=== PATIENT | female | born 1950 | race Caucasian/White ===

== ENCOUNTER 2016-04-20 03:37 | Observation (INO) | payer OTHER ==
[~2016-04-20] VITALS: Ht 154.9 cm; Wt 67.5 kg
[~2016-04-20 03:37] MED LIST: ASPI81TA28 PO; BISO10TA4 PO; CLOP1TAB15 PO; CLTP PO; MAGN250T22 PO; NITR0.4S UT; [UNRECOGNIZED DRUG - OTHER] IM
--- NOTE | 2016-04-20 04:07 | EMERGENCY ROOM VISIT NOTE ---
History Report prepared by Brea: Rylee Haddad Under the Supervision of: Dr. Arnold Murillo M.D. First contact with patient: 03:45 Chief Complaint: CHEST PAIN Stated Complaint: CHEST DISCOMFORT History of Present Illness The patient is a 66 year old female who presents to the Emergency Room with complaints of intermittent left sided chest pain starting a few days ago. She describes it to be a twinge in her chest. The pain occurs every few minutes and lasts for about 2 seconds at a time. She states the frequency of the pain has increased. The pain worsens at night when she is lying down. She has improvement in her symptoms when she is preoccupied. She does not have any shortness of breath or worsening pain with exertion. She has a history of 5 cardiac stent placements. She denies any personal or family history of blood clots. She has a family history of heart disease. She takes Aspirin, Plavix, and a beta robyn every day. She did not take any Nitro today. The patient denies any recent travels, fevers, nausea, vomiting, lower extremity swelling, or any other complaints. Source of History: patient Onset: a few days ago Position: chest (left) Quality: other (twinge) Timing: intermittent Associated Symptoms: No SOB, No fevers, No nausea, No vomiting Review of Systems See HPI for pertinent positives & negatives. A total of 10 systems reviewed and were otherwise negative. Past Medical & Surgical Medical Problems: (1) Heart disease Surgical Problems: (1) History of coronary artery stent placement Family History Diabetes mellitus FHx: cancer FHx: gallbladder disease FHx: heart disease Hypertension Kidney disease Social History Smoking Status: Never Smoker Marital Status: Housing Status: lives with family Current/Historical Medications Scheduled Aspirin (Aspirin Ec), 81 MG PO QAM Bisoprolol Fumarate (Bisoprolol Fumarate), 5 PO QAM Calcium Carbonate-Cholecalcife (Caltrate 600+D), 1 TAB PO BID Clopidogrel (Plavix), 75 MG PO QAM Ezetimibe (Zetia), 10 MG PO DAILY Nitroglycerin (Nitrostat), 0.4 MG UT PRN [Alicorumab], 75 MG IM EVERY 2 WEEKS Allergies Coded Allergies: Metoprolol (Verified Allergy, Mild, RASH, 04/20/16) Omeprazole (Verified Allergy, Mild, PRURITIS, 04/20/16) Tramadol (Verified Allergy, Mild, RASH, 04/20/16) Beta Adrenergic Blockers (Unverified Allergy, Unknown, RASH, 04/20/16) Codeine (Verified Allergy, Unknown, NAUSEA, 04/20/16) Iron (Verified Allergy, Unknown, DIARRHEA, 04/20/16) Sulfa Drugs (Verified Allergy, Unknown, "GET HOT AND RED", 04/20/16) Fentanyl (Verified Adverse Reaction, Intermediate, NAUSEA/ EXTREME HOT FLASHES, 04/20/16) Physical Exam Vital Signs Date Time Temp Pulse Resp B/P Pulse Ox O2 Delivery O2 Flow Rate FiO2 04/20/16 06:30 36.4 60 17 146/81 97 Room Air 04/20/16 06:16 61 20 118/65 100 04/20/16 06:10 61 20 118/65 100 Room Air 04/20/16 05:00 63 18 124/83 94 Room Air 04/20/16 04:16 94 Room Air 04/20/16 03:57 66 04/20/16 03:49 99 Room Air 04/20/16 03:41 36.5 69 16 146/80 97 Room Air Physical Exam GENERAL: Patient is mildly anxious appearing and in no acute distress. HEENT: No acute trauma, normocephalic atraumatic, mucous membranes moist, no nasal congestion, no scleral icterus. NECK: No stridor, no adenopathy, no meningismus, trachea is midline. LUNGS: No dyspnea. Clear to auscultation and equal bilaterally. No wheeze, no rhonchi. HEART: Regular rate and rhythm. No murmurs, rubs, gallops appreciated. ABDOMEN: Soft, nontender, bowel sounds positive, no masses appreciated, no peritonitis. BACK: No midline tenderness, no CVA tenderness EXTREMITIES: Normal motion all extremities, no cyanosis, no edema. NEUROLOGIC: Alert and oriented, no acute motor or sensory deficits, no focal weakness, cranial nerves grossly intact. SKIN: No rash, no jaundice, no diaphoresis. Medical Decision & Procedures ER Provider Diagnostic Interpretation: X ray results are stated below per my interpretation: Chest: 1 view: No infiltrate, no effusion, normal cardiac border. Laboratory Results 04/20/16 04:10 Red Blood Count 4.45, Mean Corpuscular Volume 89.4, Mean Corpuscular Hemoglobin 31.5, Mean Corpuscular Hemoglobin Concent 35.2, Mean Platelet Volume 9.7, Neutrophils (%) (Auto) 52.0, Lymphocytes (%) (Auto) 38.1, Monocytes (%) (Auto) 7.7, Eosinophils (%) (Auto) 1.7, Basophils (%) (Auto) 0.3, Neutrophils # (Auto) 3.31, Lymphocytes # (Auto) 2.42, Monocytes # (Auto) 0.49, Eosinophils # (Auto) 0.11, Basophils # (Auto) 0.02 04/20/16 04:10 Test 04/20/16 04:10 White Blood Count 6.36 K/uL (4.8-10.8) Red Blood Count 4.45 M/uL (4.2-5.4) Hemoglobin 14.0 g/dL (12.0-16.0) Hematocrit 39.8 % (37-47) Mean Corpuscular Volume 89.4 fL (80-100) Mean Corpuscular Hemoglobin 31.5 pg (25-34) Mean Corpuscular Hemoglobin Concent 35.2 g/dl (32-36) Platelet Count 223 K/uL (130-400) Mean Platelet Volume 9.7 fL (7.4-10.4) Neutrophils (%) (Auto) 52.0 % Lymphocytes (%) (Auto) 38.1 % Monocytes (%) (Auto) 7.7 % Eosinophils (%) (Auto) 1.7 % Basophils (%) (Auto) 0.3 % Neutrophils # (Auto) 3.31 K/uL (1.4-6.5) Lymphocytes # (Auto) 2.42 K/uL (1.2-3.4) Monocytes # (Auto) 0.49 K/uL (0.11-0.59) Eosinophils # (Auto) 0.11 K/uL (0-0.5) Basophils # (Auto) 0.02 K/uL (0-0.2) RDW Standard Deviation 38.4 fL (36.4-46.3) RDW Coefficient of Variation 11.8 % (11.5-14.5) Immature Granulocyte % (Auto) 0.2 % Immature Granulocyte # (Auto) 0.01 K/uL (0.00-0.02) D-Dimer 300 ug/L FEU (0-500) Anion Gap 12.0 mmol/L (3-11) Est Creatinine Clear Calc Drug Dose 53.5 ml/min Estimated GFR () 74.7 Estimated GFR (Non- 64.5 BUN/Creatinine Ratio 18.6 (10-20) Calcium Level 9.5 mg/dl (8.5-10.1) Total Creatine Kinase 78 U/L (26-192) Creatine Kinase MB 1.0 ng/ml (0.5-3.6) Creatine Kinase MB Ratio 1.3 (0-3.0) Troponin I < 0.015 ng/ml (0-0.045) Laboratory results as reviewed by me. Medications Administered Medications (Trade) Dose Ordered Sig/Gunjan Route Start Time Stop Time Status Last Admin Dose Admin Aspirin (Aspirin Chew) 324 mg NOW STAT PO 04/20/16 04:43 04/20/16 04:44 DC 04/20/16 04:56 324 MG ECG Indication: chest pain Rate (beats per minute): 64 Rhythm: normal sinus Findings: T-wave inversion (Anterior), no acute ischemic change, no ectopy Comparison ECG Date: January 05, 2013 Change: Anterior T wave inversion is similar to January 05, 2013. ED Course 0345: The patient was evaluated in room B08. A complete history and physical exam was performed. 0443: Aspirin 324 mg PO 0445: I reevaluated the patient whose symptoms have resolved. 0515: Upon reevaluation, the patient is resting comfortably. Discussed results and treatment plan with the patient. She verbalized understanding and agreement with the treatment plan. I spoke with Dr. Badillo, from [facility] Hospitalist [facility]. The patient will be evaluated for further management. Medical Decision Differential: Cardiac Ischemia (STEMI, NSTEMI, Unstable Angina, etc), Aortic Dissection, Arrhythmia, Pulmonary Embolism, Pneumonia, Pneumothorax, MSK, Infectious, Pericarditis/Myocarditis, Esophageal Rupture, Gastrointestinal, amongst other pathologies entertained. 66 yr old female with extensive CAD history and multiple previous stents. Previous angina non-classical and with increasing chest tingling without exertion seems concerning that she may be having another ACS episode. No Chest discomfort while in department. Given asa empirically. Initial EKG looks similar to previous and negative initial trop. No evidence PE, dissection, infectious etiology. Stable and comfortable throughout ED stay. Given history will bring in to medical service for further work-up and evaluation. Consults Time Called: 05 Consulting Physician: Dr. Badillo, from [facility] Returned Call: [address] [facility] Impression Primary Impression: Left sided chest pain Scribe Attestation The scribe's documentation has been prepared under my direction and personally reviewed by me in its entirety. I confirm that the note above accurately reflects all work, treatment, procedures, and medical decision making performed by me. Departure Information Dispostion Being Evaluated By Hospitalist Referrals RV. Espinoza MD (PCP) Patient Instructions My [facility]
[2016-04-20 04:26] LABS: BASO % 0.3 %; BASO ABS # 0.02 K/uL (0-0.2); COMPLETE YES; EOS % 1.7 %; HEMATOCRIT 39.8 % (37-47); IG% 0.2 %; LYMPH % 38.1 %; LYMPH ABS # 2.42 K/uL (1.2-3.4); MEAN CELL VOLUME 89.4 fL (80-100); MEAN CORPUSCULAR HEMOGLOBIN 31.5 pg (25-34); MEAN CORPUSCULAR HGB CONC 35.2 g/dl (32-36); MEAN PLATELET VOLUME 9.7 fL (7.4-10.4); MONO % 7.7 %; PLATELET COUNT 223 K/uL (130-400); RED BLOOD COUNT 4.45 M/uL (4.2-5.4); WHITE BLOOD COUNT 6.36 K/uL (4.8-10.8)
[2016-04-20] MEDS ORDERED: CALC-354 PO (04:39)
[2016-04-20] MEDS ORDERED: EZET10TA63 PO (04:40)
[2016-04-20] MEDS ORDERED: ASPIRIN 324 MG CHEW PO STA (04:43)
[2016-04-20 04:48] LABS: BLOOD UREA NITROGEN 17 mg/dl (7-18); BUN/CREATININE RATIO 18.6 (10-20); CALCIUM 9.5 mg/dl (8.5-10.1); CARBON DIOXIDE 26 mmol/L (21-32); CHLORIDE 105 mmol/L (98-107); CREATININE 0.93 mg/dl (0.60-1.20); GLUCOSE 93 mg/dl (70-99); POTASSIUM 3.7 mmol/L (3.5-5.1); SODIUM 143 mmol/L (136-145)
[2016-04-20 04:53] LABS: CKMB/CK RATIO 1.3 (0-3.0)
--- NOTE | 2016-04-20 05:43 | History and Physical ---
History & Physical Date & Time of Service: Apr 20, 2016 at 05:43 Chief Complaint: Chest Discomfort Primary Care Physician: RV. Espinoza MD History of Present Illness Source: patient, clinic records This is a 66 yo f who follows with Dr Brooks from [facility] [facility] for cardiac stent x 5. She had 3 placed in 2008 and 2 placed in 2012. She states that she has been suffering from short bouts of chest "twinges" for the past 1-2 days in the left chest. These episodes last 1-2 sec and feel like a pinch. Usually self resolving with no aggravating factors. She said she was not concerned however at 0230 this morning she was having a sustained episode and because it was not resolving decided to come to the ED for evaluation. Currently the pain is 0/10 and she has not had an episode for an hour. She denies having any diaphoresis, SOB, nausea, cough, presyncope. Past Medical/Surgical History Medical Problems: (1) Heart disease Status: Chronic Family History Diabetes mellitus FHx: cancer FHx: gallbladder disease FHx: heart disease Hypertension Kidney disease Social History Smoking Status: Never Smoker Smokeless Tobacco Use: No Alcohol Use: none Drug Use: none Marital Status: Housing status: lives with family Occupational Status: retired Immunizations History of Influenza Vaccine: Yes Influenza Vaccine Date: Dec 22, 2012 History of Tetanus Vaccine?: Yes Tetanus Immunization Date: Jun 12, 2008 History of Pneumococcal: Yes Pneumococcal Date: Oct 11, 2008 History of Hepatitis B Vaccine: Yes Hepatitis Immunization Date: Jan 10, 2011 Multi-Drug Resistant Organisms History of MDRO: No Allergies Coded Allergies: Metoprolol (Verified Allergy, Mild, RASH, 04/20/16) Omeprazole (Verified Allergy, Mild, PRURITIS, 04/20/16) Tramadol (Verified Allergy, Mild, RASH, 04/20/16) Beta Adrenergic Blockers (Unverified Allergy, Unknown, RASH, 04/20/16) Codeine (Verified Allergy, Unknown, NAUSEA, 04/20/16) Iron (Verified Allergy, Unknown, DIARRHEA, 04/20/16) Sulfa Drugs (Verified Allergy, Unknown, "GET HOT AND RED", 04/20/16) Fentanyl (Verified Adverse Reaction, Intermediate, NAUSEA/ EXTREME HOT FLASHES, 04/20/16) Home Medications Scheduled Aspirin (Aspirin Ec), 81 MG PO QAM Bisoprolol Fumarate (Bisoprolol Fumarate), 5 PO QAM Calcium Carbonate-Cholecalcife (Caltrate 600+D), 1 TAB PO BID Clopidogrel (Plavix), 75 MG PO QAM Ezetimibe (Zetia), 10 MG PO DAILY Nitroglycerin (Nitrostat), 0.4 MG UT PRN [Alicorumab], 75 MG IM EVERY 2 WEEKS Review of Systems Constitutional: No fever Eyes: No worsening of vision ENT: No hearing loss Respiratory: No cough, No dyspnea at rest, No dyspnea on exertion, No shortness of breath, No sputum, No wheezing Cardiovascular: + chest pain Abdomen: No constipation, No diarrhea, No nausea, No pain, No vomiting Musculoskeletal: No joint pain, No muscle pain Neurologic: No balance problems, No memory loss, No numbness/tingling Psychiatric: No depression symptoms Endocrine: No fatigue Integumentary: No rash Physical Exam Vital Signs Date Time Temp Pulse Resp B/P Pulse Ox O2 Delivery O2 Flow Rate FiO2 04/20/16 05:00 63 18 124/83 94 Room Air 04/20/16 04:16 94 Room Air 04/20/16 03:57 66 04/20/16 03:49 99 Room Air 04/20/16 03:41 36.5 69 16 146/80 97 Room Air General Appearance: WD/WN, no apparent distress Head: normocephalic, atraumatic Eyes: normal inspection ENT: normal ENT inspection Neck: supple Respiratory/Chest: lungs clear, normal breath sounds, no respiratory distress, no accessory muscle use Cardiovascular: regular rate, rhythm, no murmur Abdomen/GI: normal bowel sounds, non tender, soft Back: normal inspection Extremities/Musculoskelatal: normal inspection, no calf tenderness, no pedal edema Neurologic/Psych: no motor/sensory deficits, alert, normal mood/affect, oriented x 3 Skin: normal color, warm/dry, no rash Lymphatic: no adenopathy Diagnostics Laboratory Results Results Past 24 Hours Test 04/20/16 04:10 Range/Units White Blood Count 6.36 4.8-10.8 K/uL Red Blood Count 4.45 4.2-5.4 M/uL Hemoglobin 14.0 12.0-16.0 g/dL Hematocrit 39.8 37-47 % Mean Corpuscular Volume 89.4 80-100 fL Mean Corpuscular Hemoglobin 31.5 25-34 pg Mean Corpuscular Hemoglobin Concent 35.2 32-36 g/dl Platelet Count 223 130-400 K/uL Mean Platelet Volume 9.7 7.4-10.4 fL Neutrophils (%) (Auto) 52.0 % Lymphocytes (%) (Auto) 38.1 % Monocytes (%) (Auto) 7.7 % Eosinophils (%) (Auto) 1.7 % Basophils (%) (Auto) 0.3 % Neutrophils # (Auto) 3.31 1.4-6.5 K/uL Lymphocytes # (Auto) 2.42 1.2-3.4 K/uL Monocytes # (Auto) 0.49 0.11-0.59 K/uL Eosinophils # (Auto) 0.11 0-0.5 K/uL Basophils # (Auto) 0.02 0-0.2 K/uL RDW Standard Deviation 38.4 36.4-46.3 fL RDW Coefficient of Variation 11.8 11.5-14.5 % Immature Granulocyte % (Auto) 0.2 % Immature Granulocyte # (Auto) 0.01 0.00-0.02 K/uL Sodium Level 143 136-145 mmol/L Potassium Level 3.7 3.5-5.1 mmol/L Chloride Level 105 98-107 mmol/L Carbon Dioxide Level 26 21-32 mmol/L Anion Gap 12.0 3-11 mmol/L Blood Urea Nitrogen 17 7-18 mg/dl Creatinine 0.93 0.60-1.20 mg/dl Est Creatinine Clear Calc Drug Dose 53.5 ml/min Estimated GFR () 74.7 Estimated GFR (Non- 64.5 BUN/Creatinine Ratio 18.6 10-20 Random Glucose 93 70-99 mg/dl Calcium Level 9.5 8.5-10.1 mg/dl Total Creatine Kinase 78 26-192 U/L Creatine Kinase MB 1.0 0.5-3.6 ng/ml Creatine Kinase MB Ratio 1.3 0-3.0 Troponin I < 0.015 0-0.045 ng/ml Impression Assessment and Plan This is a 66 yo f with significant CVS history that is presenting to us with new onset chest pain. There is some concern that because it woke her up suddenly from sleep that this is a PE so a DDimer will be completed. She has had a stress echo Apr 2015 which was WNL Chest pain NYD, possibly cardiac vs msk - tele admission - troponin x 3 - DDimer - will trend troponin and if any change consider further w/u, considering recent stress echo will defer imaging for now - consult [facility] [place] [facility] CVS HTN - cont bisoprolol hyperchol - continue ezetimibe DVT Prophylaxis scd FULL CODE Level of Care Telemetry Resuscitation Status FULL RESUSCITATION VTE Prophylaxis VTE Risk Assessment Done? Y/N: Yes Risk Level: Low Given or contraindicated: SCD's Social Service Consult None Apply Note Total Time: Critical Care 30 - 74 minutes Additional Copies To RV. Espinoza MD Assessment and Plan Attending Addendum: I have physically seen and examined this patient, have directed their medical care, have supervised the medical residents activities, and agree with the H&P as noted above, with the following changes: NONE The patient is a 66-year-old female who reports that she was awoken from sleep at 3:00 this morning by precordial area chest pain that she describes as a sharp sensation. She initially noted chest discomfort about 2 days ago pressure lasted only a few seconds. She can't emergency department early this morning due to the change in character of the pain that he continue to be episodic longer than it had been before. She continues to have intermittently a left wrist area pressure that was one of her for symptoms when she had need for stent placement past, but this sensation has not changed over the past years. She reports no change in usual activities over the past few days, no recent travel, no reflux type symptoms.The patient denies palpitations, cough , lower extremity swelling, vision change, hearing change, sore throat, fevers, chills, sweats, weight change, fatigue, nausea, vomiting, abdominal pain, pelvic pain, blood in urine or stool, dysuria, urinary frequency or urgency, lightheadedness, dizziness, headache, memory loss, rash, abnormal bruising or bleeding, imbalance, focal or generalized weakness, arthralgias or myalgias, back or neck pain, night sweats, or allergy symptoms. The review of systems is otherwise negative other than for that already noted above, and at least 10 systems have been reviewed. The patient is awake, well-developed and adequately nourished, alert and oriented 3, normocephalic and atraumatic, lying in bed and in no acute distress. HEENT--PERRL, EOMI, mucous membranes and oropharynx moist. Neck--supple, no JVD or bruits, thyroid normal, trachea midline, no adenopathy. Heart--normal S1 and S2, no extra beats, no murmurs, rubs or gallops. Lungs--clear bilaterally with good air movement, no respiratory distress, no accessory muscle use. Abdomen--normal bowel sounds and soft, nontender and nondistended, no hernias or masses, no organomegaly. Extremities--no cyanosis, clubbing or edema. There are good distal pulses b/l. Dermatologic--normal skin turgor, normal color, warm and dry, no abnormal lymph nodes, no rash. Neurologic--cranial nerves II through XII grossly intact, motor and sensory examination normal. Rheumatologic--normal range of motion, nontender, muscles and joints. Psychiatric--normal affect. Assessment and Plan: Coronary artery disease/coronary artery stent history/hypertension/Precordial Chest Pain that awoke her from sleep with an unstable angina-type picture-- patient be admitted to the telemetry unit, for serial cardiac enzymes, cardiac rhythm monitoring, and a 2-D echocardiogram with Dopplers. EKG shows no change compared to 12/2012. We'll order a d-dimer, and if abnormal will need a CT angiography of the chest to assess for PE. We'll continue aspirin 81 mg by mouth daily, clopidogrel 75 mg by mouth daily, and continue bisoprolol 5mg daily. We'll consult her electronic scanner operator Dr. Brooks. Hypercholesterolemia--continue Zyrtec 10 mg by mouth daily.
[2016-04-20] MEDS ORDERED: ENOXAPARIN 40 MG/0.4 ML SYR SC SCH (05:45)
[2016-04-20] MEDS ORDERED: MoRPHine SULFATE 2 MG/ML CARP IV PRN (05:45)
[2016-04-20] MEDS ORDERED: NITROGLYCERIN 0.4 MG SL PER TAB CHARGE SL PRN (05:45)
[2016-04-20] MEDS ORDERED: NITROGLYCERIN 0.4 MG SL PER TAB CHARGE UT SCH (06:00)
[2016-04-20 06:30] VITALS: BP 146/81; PULSE 60; TEMP 36.4; O2SAT 97; Ht 154.9 cm; Wt 67.5 kg
[2016-04-20] MEDS ORDERED: IV FLUIDS COMPLETED PRN (06:45)
--- NOTE | 2016-04-20 07:47 | DIAGNOSTIC IMAGING REPORT ---
CHEST ONE VIEW PORTABLE CLINICAL HISTORY: Chest pain. COMPARISON STUDY: Chest radiograph January 05, 2013. FINDINGS: Lung volumes are normal. There is no pneumothorax or pleural effusion. There is no consolidation to suggest pneumonia. Cardiomediastinal silhouette is normal. IMPRESSION: No acute cardiopulmonary findings. Electronically signed by: Anibal Roberts M.D. 04/20/2016 7:46 AM Dictated Date/Time: 04/20/2016 7:46 AM
[2016-04-20 08:01] VITALS: BP 116/71; PULSE 65; TEMP 37; O2SAT 97
[2016-04-20] MEDS ORDERED: CLOPIDOGREL BISULFATE 75 MG TAB PO SCH (09:00)
[2016-04-20] MEDS ORDERED: ASPIRIN 81 MG ECTAB PO SCH (09:00)
[2016-04-20] MEDS ORDERED: EZETIMIBE 10MG TAB PO SCH (09:00)
[2016-04-20] MEDS ORDERED: BISOPROLOL FUMARATE 10 MG TAB PO SCH (09:00)
[2016-04-20] MEDS ORDERED: CALCIUM 600MG + VIT D 400 IU TAB PO SCH (09:00)
--- NOTE | 2016-04-20 10:23 | CARDIOLOGY CONSULTATION ---
DATE OF CONSULTATION: 04/20/2016 DATE OF CONSULTATION: 04/20/2016. CONSULTATION REQUESTED BY: Dr. Nguyen. REASON FOR CONSULTATION: Chest discomfort. HISTORY OF PRESENT ILLNESS: Mrs. Solano is a very pleasant 66-year-old woman who normally follows with Dr. Brooks of our cardiology practice. She presented to [facility] in the early a.m. of 04/20/2016 with a complaint of chest discomfort. The patient states that she has been experiencing a fluttering sensation for the last few days. She states it was very fleeting in nature, if anything she states described as a muscle twinging sensation. She did not think much of it. She has gone about her normal daily activities and even went to exercise class yesterday which she was able to complete without issue. Then, in the middle of the night on the morning of 04/20/2016 she had that twinging sensation again that woke her up from sleep and this time was persistent. After it lasted for almost an hour she became concerned and came into the Emergency Department. With this sensation she denied any associated shortness of breath, diaphoresis, nausea, palpitations, lightheadedness, dizziness, syncope, or radiation of her discomfort. She states that this is not her anginal equivalent and her anginal equivalent is numbness and tightness in her left upper extremity. She states otherwise she has been feeling well and again she has remained active. She has been taking all of her medications as directed without issue. PAST SURGICAL HISTORY: 1. PCI with a drug-eluting stent to the proximal circumflex and 2 stents to the mid LAD in June 2008. 2. Followup PCI with drug-eluting stent placement to the proximal LAD. 3. Most recent PCI to the mid circumflex in 2012, a drug-eluting stent. 4. Colonoscopy. 5. Tendon repair. MEDICAL ILLNESSES: 1. Coronary artery disease status post PCI x5. 2. Dyslipidemia with statin intolerance. 3. Beta robyn intolerance. 4. Restless leg syndrome. FAMILY HISTORY: Noncontributory. SOCIAL HISTORY: Denies any alcohol, tobacco or recreational drug use. She is . She lives at home with her family. She is retired. She exercises on a regular basis. REVIEW OF SYSTEMS: As per HPI, all other review of systems reviewed and negative at this time. ALLERGIES: 1. CIPRO 2. FENTANYL. 3. MORPHINE. 4. PRILOSEC. 5. SULFA. 6. TOPROL-XL. 7. ULTRAM. MEDICATIONS AN OUTPATIENT: 1. Aspirin 81 mg daily. 2. Plavix 75 mg daily. 3. Praluent 75 mg injection every 14 days. 4. Bisoprolol 5 mg daily. 5. Zetia 10 mg daily. 6. Magnesium oxide 40 mg 3 times a week. PHYSICAL EXAMINATION: VITALS: Temperature 37, pulse 65, respiratory rate 12, blood pressure 116/71. GENERAL: Awake, alert, oriented x3 in no acute distress. HEAD, EYES, EARS, NOSE, AND THROAT: Normocephalic, atraumatic. Pupils equal, round, and reactive to light and accommodation. Extraocular muscles intact. Anicteric sclerae. Moist mucous membranes. NECK: No JVD, no bruit. CARDIOVASCULAR: Regular. Positive S4. Normal S1 and S2. No S3. No murmurs or rubs. PULMONARY: Clear to auscultation bilaterally. No rales, rhonchi, or wheezing. ABDOMEN: Bowel sounds x4, soft. No rebound, guarding, tenderness. No organomegaly. EXTREMITIES: No clubbing, cyanosis or edema. +2 pedal pulses bilaterally. SKIN: Warm and dry. MUSCULOSKELETAL: Direct palpation of the chest wall was unable to elicit her symptoms. A 12-lead EKG performed in the Emergency Department independently reviewed at this time shows normal sinus rhythm at 64 beats per minute, incomplete right bundle branch block, inverted T-waves anteriorly. No significant change compared to previous studies. LABORATORY STUDIES OF SIGNIFICANCE: Sodium 143, potassium 3.7, BUN 17, creatinine 0.93. CPK of 78. Troponin of less than 0.015. IMPRESSION: 1. Atypical chest discomfort. 2. Coronary artery disease status post PCI x5. 3. Dyslipidemia on PCS K9 inhibitor. RECOMMENDATIONS: It was my pleasure to see Mrs. Solano in consultation today. The patient was counseled that even though while her symptoms are atypical for unstable angina given her history of atypical symptoms being her anginal equivalent in the past I do believe an ischemic evaluation is warranted at this time. So after a second set of cardiac enzymes comes back negative, we will proceed with an exercise stress echocardiogram and further recommendations will be made at that time. Otherwise, no medication changes will be made currently.
[2016-04-20] MEDS ORDERED: PERFLUTREN LIPID MICROSPHERE (DEFINITY) IV ONE (11:37)
--- NOTE | 2016-04-20 11:38 | Progress Note ---
Progress Note nonischemic exercise stress echocardiogram ok to d/c to home from cardiac standpoint no medication changes f/u with Dr. Brooks as scheduled.
--- NOTE | 2016-04-20 13:08 | Discharge Instructions ---
Discharge Instructions Admission Reason for Admission: Hx Coronary Artery Stent Placement, Left Cp Discharge Discharge Diagnosis / Problem: Chest pressure, negative stress test Discharge Goals Goal(s): Improve disease control, Prevent Disease Progression Activity Recommendations Activity Limitations: resume your previous activity Lifting Limitations: none Exercise/Sports Limitations: as tolerated May Resume Sexual Activity: when tolerated Shower/Bathe: no limitations Driving or Machine Use: no limitations . Instructions / Follow-Up Instructions / Follow-Up Medications: no changes FOLLOW UP - no need for immediate follow up, keep previously scheduled appointments with Dr. Brooks and primary care physician Current Hospital Diet Patient's current hospital diet: AHA Diet (Heart Healthy), Low Sodium Diet (2gm Na) Discharge Diet Recommended Diet: AHA Diet (Heart Healthy) Procedures Procedures Performed: Exercise stress echocardiogram - negative for ischemia Pending Studies Studies pending at discharge: no Medical Emergencies . Who to Call and When: Medical Emergencies: If at any time you feel your situation is an emergency, please call 911 immediately. . Non-Emergent Contact Non-Emergency issues call your: Primary Care Provider, Tugger Operator Call Non-Emergent contact if: you have any medication questions . . "Provider Documentation" section prepared by Michael Hubbard. VTE Core Measure Inpt VTE Proph given/why not?: SCD's [place] Drug Monitoring Program Search Results: no issues identified
--- NOTE | 2016-04-20 13:55 | EXERCISE STRESS ECHO ---
*NOTICE TO RECEIVING DEMOCRAT AGENCY This information is strictly Confidential and protected under [place] law. [place] law prohibits you from making any further disclosure of this information unless further disclosure is expressly permitted by the written consent of the person to whom it pertains or is authorized by law. A general authorization for the release of medical or other information is not sufficient for this purpose. Hospital accepts no responsibility if the information is made available to any other person, INCLUDING THE PATIENT. Interpretation Summary * Name: ERIC WEBSTER Study Date: 04/20/2016 10:12 AM BP: 117/66 mmHg * Patient Location: C.2T\S\S244\S\1 HR: 61 * : 1950 (M/d/yyyy) Gender: Female Height: 61 in * Age: 66 yrs Ethnicity: CA Weight: 148 lb * Ordering Physician: Irvin Gamboa * Referring Physician: Self, Referred * Performed By: Conchita Tomlin RDCS * * Reason For Study: CHEST PAIN * BSA: 1.7 m2 * History: CHEST PAIN * -- Conclusions -- * Nonischemic exercise stress echocardiogram. * No arrhythmias. * Normal HR and BP response to exercise. * Above average exercise tolerance. * At rest, normal LV chamber size and wall thickness. * Normal LV systolic function, EF 60-65%. * No segmental left ventricular wall motion abnormalities are noted. * Grade I diastolic dysfunction. * Trace mitral regurgitation. Procedure Details * ECHOEX, CPT #93234 * A contrast injection of Definity was performed to improve assessment of LV function. * Contrast was injected into an intravenous site in the right arm. * One vial of Definity ultrasound contrast was diluted in normal saline to a total volume of 10 ml. A total of '4' ml of solution was administered during imaging. * Lot # [id number] of Definity utilized for procedure. * Expiration date MAR 31. * The attending nurse who injected the contrast agent was SUYAPA WALL RN. Left Ventricle * The left ventricle is normal in size. * There is normal left ventricular wall thickness. * Ejection Fraction = 60-65%. * Left ventricular systolic function is normal. * No segmental left ventricular wall motion abnormalities are noted. * Resting wall motion: Normal. Stress wall motion: Appropriate increase in Left ventricular systolic function and decrease in cavity size. No stress induced segmental wall motion abnormalities. Right Ventricle * The right ventricular cavity size is normal (basal dimension <4.2 cm in right ventricular apical 4-chamber view). * The right ventricular systolic function is normal as assessed by tricuspid annular plane systolic excursion (TAPSE) (normal >1.5 cm). Atria * The left atrial size is normal. * Right atrial size is normal. * No ASD detected; PFO is not assessed. Mitral Valve * The mitral valve anatomy is normal. * There is no mitral valve stenosis. * There is trace mitral regurgitation. Tricuspid Valve * The tricuspid valve is normal in structure and function. Aortic Valve * The aortic valve is normal in structure and function. Pulmonic Valve * The pulmonary valve is not well seen, but the Doppler examination is normal without significant regurgitation or stenosis. Great Vessels * The aortic root is normal size. Pericardium * There is no pericardial effusion. Stress Parameters * Normal baseline electrocardiogram. * No arrhythmia were noted with stress. * Equivocal 2mm upsloping ST segement depressions in inferior leads only. * The stress portion of this study was personally supervised by the undersigned interpreting physician. * Rest heart rate was '61' BPM. * Rest blood pressure was '117/66' * Maximum heart rate achieved was 173 bpm. * Maximum heart rate was 111 % of maximum age-predicted heart rate. * Maximum blood pressure was '160/69' * Total exercise time was '10:17' * Maximum exercise MET level achieved was '12.10' METS * Maximum treadmill speed was '4.20' miles per hour. * Maximum treadmill elevation was '16.00'% grade. * Exercise was terminated due to 'ACHIEVING TARGET HR' Left Ventricular Diastolic Function * Grade I diastolic dysfunction, (abnormal relaxation pattern). MMode 2D Measurements and Calculations IVSd 0.54 cm IVSs 1.1 cm LVIDd 4.2 cm LVIDs 3.1 cm LVPWd 0.71 cm LVPWs 1.0 cm IVS/LVPW 0.76 FS 25.9 % EDV(Teich) 80.0 ml ESV(Teich) 39.0 ml EF(Teich) 51.3 % EDV(cubed) 75.8 ml ESV(cubed) 30.9 ml EF(cubed) 59.3 % % IVS thick 97.7 % % LVPW thick 43.8 % LV mass(C)d 75.2 grams LV mass(C)dI 45.2 grams/m\S\2 LV mass(C)s 94.5 grams LV mass(C)sI 56.8 grams/m\S\2 SV(Teich) 41.0 ml SI(Teich) 24.7 ml/m\S\2 SV(cubed) 45.0 ml SI(cubed) 27.1 ml/m\S\2 Ao root diam 2.5 cm Ao root area 5.0 cm\S\2 LA dimension 3.3 cm LA/Ao 1.3 LVAd ap4 24.3 cm\S\2 LVLd ap4 7.9 cm EDV(MOD-sp4) 62.4 ml EDV(sp4-el) 63.5 ml LVAs ap4 15.0 cm\S\2 LVLs ap4 6.5 cm ESV(MOD-sp4) 29.8 ml ESV(sp4-el) 29.1 ml EF(MOD-sp4) 52.3 % EF(sp4-el) 54.2 % LVAd ap2 24.8 cm\S\2 LVLd ap2 7.6 cm EDV(MOD-sp2) 67.1 ml EDV(sp2-el) 68.5 ml LVAs ap2 14.3 cm\S\2 LVLs ap2 6.2 cm ESV(MOD-sp2) 28.0 ml ESV(sp2-el) 27.9 ml EF(MOD-sp2) 58.3 % EF(sp2-el) 59.2 % LVLd %diff -3.05 % EDV(MOD-bp) 65.6 ml LVLs %diff -5.21 % ESV(MOD-bp) 29.2 ml EF(MOD-bp) 55.5 % SV(MOD-sp4) 32.6 ml SI(MOD-sp4) 19.6 ml/m\S\2 SV(MOD-sp2) 39.1 ml SI(MOD-sp2) 23.5 ml/m\S\2 SV(MOD-bp) 36.4 ml SI(MOD-bp) 21.9 ml/m\S\2 SV(sp4-el) 34.4 ml SI(sp4-el) 20.7 ml/m\S\2 SV(sp2-el) 40.6 ml SI(sp2-el) 24.4 ml/m\S\2 Doppler Measurements and Calculations MV E max дмитрий 79.3 cm/sec MV A max дмитрий 83.7 cm/sec MV E/A 0.95 MV dec time 0.23 sec Ao V2 max 155.1 cm/sec Ao max PG 9.6 mmHg Ao max PG (full) 7.5 mmHg LV V1 max PG 2.1 mmHg LV V1 max 72.7 cm/sec
[2016-04-20 13:56] VITALS: BP 116/71; PULSE 65; TEMP 37; O2SAT 97
--- NOTE | 2016-04-20 14:20 | Discharge Summary ---
Discharge Summary Admission Date: Apr 20, 2016 at 05:42 Discharge Date: Apr 20, 2016 Discharge Disposition: Home Principal Diagnosis: Chest pressure Problems/Secondary Diagnoses: H/o CAD s/p stenting x 5 Immunizations: Have You Had Influenza Vaccine: Yes Influenza Vaccine Date: Dec 22, 2012 History of Tetanus Vaccine?: Yes Tetanus Immunization Date: Jun 12, 2008 History of Pneumococcal: Yes Pneumococcal Date: Oct 11, 2008 History of Hepatitis B Vaccine: Yes Hepatitis Immunization Date: Jan 10, 2011 Procedures: Exercise stress echocardiogram - negative for ischemia Consultations: Cardiology - Dr. Gamboa Medication Reconciliation Continued Medications: Aspirin (Aspirin Ec) 81 Mg Tab 81 MG PO QAM Bisoprolol Fumarate (Bisoprolol Fumarate) 10 Mg Tab 5 PO QAM Calcium Carbonate-Cholecalcife (Caltrate 600+D) 1 Tab Tab 1 TAB PO BID Clopidogrel (Plavix) 75 Mg Tab 75 MG PO QAM, TAB Ezetimibe (Zetia) 10 Mg Tab 10 MG PO DAILY, TAB Nitroglycerin (Nitrostat) 0.4 Mg Sub 0.4 MG UT PRN, BTL [Alicorumab] () 75 MG IM EVERY 2 WEEKS Discharge Exam Patient felt well this AM, no further "twinges" of chest discomfort. Tolerated exercise stress echocardiogram well, no signs of ischemia on EKG or echo. cleared for d/c by cardiology. Review of Systems: Constitutional: No chills, No fatigue, No fever, No problem reported, No sweats, No weakness, No weight loss Eyes: No diplopia, No discharge, No eye pain, No problem reported, No redness, No worsening of vision ENT: No dental problems, No hearing loss, No nasal symptoms, No problem reported, No sore throat, No tinnitus, No trouble swallowing, No unusual epistaxis Respiratory: No cough, No dyspnea at rest, No dyspnea on exertion, No hemoptysis, No problem reported, No shortness of breath, No sputum, No wheezing Cardiovascular: No PND, No chest pain, No claudication, No edema, No orthopnea, No palpitations, No problem reported Abdomen: No GI bleeding, No constipation, No diarrhea, No nausea, No pain, No problem reported, No vomiting Musculoskeletal: No calf pain, No joint pain, No muscle pain, No problem reported, No swelling Genitourinary - Female: No dysuria, No hematuria, No urinary frequency, No urinary incontinence, No urinary retention, No urinary urgency Neurologic: No balance problems, No memory loss, No numbness/tingling, No paralysis, No problem reported, No vertigo, No weakness Psychiatric: No anhedonism, No anxiety, No depression symptoms, No insomnia , No problem reported, No substance abuse Endocrine: No excessive thirst, No excessive urination, No fatigue, No problem reported Hematologic / Lymphatic: No abnormal bleeding/bruising, No clotting problems , No night sweats, No problem reported, No swollen lymph nodes Integumentary: No bleeding, No color change, No itch, No new/changing skin lesions, No problem reported, No rash Physical Exam: General Appearance: WD/WN, no apparent distress Eyes: normal inspection, EOMI, sclerae normal ENT: normal ENT inspection, hearing grossly normal, pharynx normal Neck: supple, no adenopathy, no JVD, trachea midline Respiratory/Chest: chest non-tender, lungs clear, normal breath sounds, no respiratory distress, no accessory muscle use Cardiovascular: regular rate, rhythm, no edema, no gallop, no JVD, no murmur , normal peripheral pulses Abdomen / GI: normal bowel sounds, non tender, soft, no organomegaly Extremities: normal inspection, no calf tenderness, normal capillary refill , no pedal edema, normal range of motion, pelvis stable Neurologic/Psychiatric: 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 EKG and chest x-ray normal, troponin negative. Observed on telemetry over night, no further episodes of symptoms, troponin negative. Cardiology recommended exercise stress echocardiogram that was normal, cleared for d/c home. - Chest discomfort: resolved, normal stress echo, was likely musculoskeletal and self limiting - CAD: continue aspirin, Plavix, and Zetia, f/u with Dr. Brooks Total Time Spent: Less than 30 minutes This includes examination of the patient, discharge planning, medication reconciliation, and communication with other providers. Discharge Instructions Please refer to the electronic Patient Visit Report (Discharge Instructions) for additional information. Follow-Up Dr. Brooks - as previously scheduled PCP - as previously scheduled Additional Copies To RV. Espinoza MD; Jamin Brooks D.O.
== END 2016-04-20 14:35 | disposition home or self-care (01) ==
LOC: ENRESERVTM → ENRESERVDT → C.EDB 03:38 → C.2T 05:42
PROVIDERS: ADMIT Student in an Organized Health Care Education/Training Program; ATTEND Internal Medicine
DX: R07.89 Other chest pain (principal); I25.10 Atherosclerotic heart disease of native coronary artery without angina pectoris; E78.5 Hyperlipidemia, unspecified; G25.81 Restless legs syndrome; E78.00 Pure hypercholesterolemia, unspecified; Z79.82 Long term (current) use of aspirin; Z88.2 Allergy status to sulfonamides; Z88.5 Allergy status to narcotic agent; Z83.3 Family history of diabetes mellitus; Z84.1 Family history of disorders of kidney and ureter; Z82.49 Family history of ischemic heart disease and other diseases of the circulatory system

== ENCOUNTER → 2016-08-13 | Outpatient (CLI) | payer OTHER ==
[~2016-08-13] MED LIST changes: +CALC-354 PO; -CLTP PO; +EZET10TA63 PO; -MAGN250T22 PO
--- NOTE | 2016-08-13 12:01 | DIAGNOSTIC IMAGING REPORT ---
THYROID ULTRASONOGRAPHY CLINICAL HISTORY: E04.1 Nontoxic single thyroid [id number] COMPARISON STUDY: 04/13/2013 FINDINGS: The right lobe of thyroid measures 40 x 14 x 14 mm. There is a hypoechoic circumscribed 7 x 6 x 6 mm mid pole nodule, unchanged in appearance from the preceding study. The left lobe measures 44 x 15 x 14 mm. There is a mildly irregular slightly hypoechoic wider than tall lower pole nodule measuring 11 x 10 x 11 mm. This remain similar in appearance to the preceding study. There is a circumscribed wider than tall mid pole nodule measuring 9 x 7 x 5 mm. This remain similar to the prior study. IMPRESSION: Multinodular thyroid gland, similar to the prior March 2013 study. Electronically signed by: Logan Davidson M.D. 08/13/2016 12:00 PM Dictated Date/Time: 08/13/2016 11:57 AM
== END | disposition home or self-care (01) ==
LOC: C.ULTR 11:11
PROVIDERS: ATTEND Internal Medicine
DX: E04.2 Nontoxic multinodular goiter (principal)

== ENCOUNTER → 2016-09-27 | Outpatient (CLI) | payer OTHER ==
[2016-09-27 10:00] LABS: ALT/SGPT 22 U/L (12-78); BLOOD UREA NITROGEN 16 mg/dl (7-18); BUN/CREATININE RATIO 17.4 (10-20); CALCIUM 9.2 mg/dl (8.5-10.1); CARBON DIOXIDE 28 mmol/L (21-32); CHLORIDE 105 mmol/L (98-107); CHOLESTEROL 237 mg/dl (0-200); CREATININE 0.93 mg/dl (0.60-1.20); GLUCOSE 95 mg/dl (70-99); SODIUM 139 mmol/L (136-145); TRIGLYCERIDES 150 mg/dl (0-150); VERY LOW DENSITY LIPOPROT CALC 30 mg/dl
[2016-09-27 10:08] LABS: ALKALINE PHOSPHATASE 70 U/L (45-117); AST/SGOT 20 U/L (15-37); HDL CHOLESTEROL 60 mg/dl; LDL CHOLESTEROL CALCULATED 147 mg/dl; THYROID STIMULATING HORMONE 0.836 uIu/ml (0.300-4.500)
== END | disposition home or self-care (01) ==
LOC: C.LAB1850 08:28
PROVIDERS: ATTEND Internal Medicine
DX: I25.10 Atherosclerotic heart disease of native coronary artery without angina pectoris (principal); E78.5 Hyperlipidemia, unspecified; E53.8 Deficiency of other specified B group vitamins; E04.1 Nontoxic single thyroid nodule; M85.89 Other specified disorders of bone density and structure, multiple sites

== ENCOUNTER → 2016-09-27 | Outpatient (CLI) | payer OTHER | END | disposition home or self-care (01) | LOC: C.MAMM 07:56 | PROVIDERS: ATTEND Internal Medicine | DX: M85.89 Other specified disorders of bone density and structure, multiple sites (principal) ==

== ENCOUNTER → 2016-10-08 | Outpatient (CLI) | payer OTHER ==
--- NOTE | 2016-10-11 07:43 | MAMMOGRAPHY REPORT ---
BILATERAL DIGITAL SCREENING MAMMOGRAM TOMOSYNTHESIS WITH CAD: 10/08/2016 CLINICAL HISTORY: Routine screening. Patient has no complaints. TECHNIQUE: Breast tomosynthesis in addition to standard 2D mammography was performed. Current study was also evaluated with a Computer Aided Detection (CAD) system. COMPARISON: Comparison is made to exams dated: 10/07/2015 mammogram, 10/03/2014 mammogram, 10/02/2013 m ammogram, 09/13/2012 mammogram, 09/13/2011 mammogram, and 03/12/2011 ultrasound - [facility] enter. BREAST COMPOSITION: The tissue of both breasts is heterogeneously dense, which may obscure small mas ses. FINDINGS: No suspicious masses, calcifications, or areas of architectural distortion are noted in ei ther breast. There has been no significant interval change compared to prior exams. Scattered bilater al benign-appearing calcifications are not significantly changed. IMPRESSION: ACR BI-RADS CATEGORY 2: BENIGN There is no mammographic evidence of malignancy. A 1 year screening mammogram is recommended. The pa tient will receive written notification of the results. Approximately 10% of breast cancers are not detected with mammography. A negative mammographic report should not delay biopsy if a clinically suggestive mass is present. Elizabeth Madrigal M.D. /:10/08/2016 15:49:58 Animal Ride Attendant: Brittany Fine [facility] letter sent: Normal 1/2 BI-RADS Code: ACR BI-RADS Category 2: Benign
== END | disposition home or self-care (01) ==
LOC: C.MAMM 09:43
PROVIDERS: ATTEND Internal Medicine
DX: Z12.31 Encounter for screening mammogram for malignant neoplasm of breast (principal)

== ENCOUNTER → 2016-12-22 | Outpatient (CLI) | payer OTHER ==
[2016-12-22 14:42] LABS: BASO % 0.2 %; BASO ABS # 0.02 K/uL (0-0.2); COMPLETE YES; EOS % 0.9 %; HEMATOCRIT 41.4 % (37-47); IG% 0.2 %; LYMPH % 30.6 %; LYMPH ABS # 2.51 K/uL (1.2-3.4); MEAN CELL VOLUME 89.6 fL (80-100); MEAN CORPUSCULAR HGB CONC 34.5 g/dl (32-36); MEAN PLATELET VOLUME 9.9 fL (7.4-10.4); MONO % 7.7 %; NEUT % 60.4 %; PLATELET COUNT 274 K/uL (130-400); RED BLOOD COUNT 4.62 M/uL (4.2-5.4); WHITE BLOOD COUNT 8.21 K/uL (4.8-10.8)
[2016-12-22 14:54] LABS: FERRITIN 66.8 ng/ml (8.0-388.0)
== END | disposition home or self-care (01) ==
LOC: C.LAB1850 12:46
PROVIDERS: ATTEND Dermatology
DX: L65.9 Nonscarring hair loss, unspecified (principal); L57.0 Actinic keratosis

== ENCOUNTER → 2017-01-05 | Outpatient (CLI) | payer OTHER ==
[2017-01-05 17:21] LABS: URINE APPEARANCE CLEAR (CLEAR); URINE BILIRUBIN NEG (NEG); URINE COLOR YELLOW; URINE EPITHELIAL CELL AUTO 0-5 /lpf (0-5); URINE NITRITE NEG (NEG); URINE SPECIFIC GRAVITY 1.022 (1.000-1.030); UROBILINOGEN NEG (NEG)
[2017-01-05 17:37] LABS: MANUAL MICROSCOPIC REQUIRED? NO; REVIEW REQ? NO
[2017-01-11 03:18] LABS: ANTI-CENTROMERE AB <1.0 NEG AI (<1.0 NEG); ANTI-SS-A <1.0 NEG AI (<1.0 NEG); ANTI-SS-B <1.0 NEG AI (<1.0 NEG); DNA ds CRITHIDIA NEGATIVE (NEGATIVE); Sm Antibody <1.0 NEG AI (<1.0 NEG)
== END | disposition home or self-care (01) ==
LOC: C.LAB1850 15:11
PROVIDERS: ATTEND Internal Medicine Rheumatology
DX: L65.9 Nonscarring hair loss, unspecified (principal); R76.8 Other specified abnormal immunological findings in serum

== ENCOUNTER → 2017-02-11 | Outpatient (CLI) | payer OTHER ==
--- NOTE | 2017-02-11 09:05 | DIAGNOSTIC IMAGING REPORT ---
ABDOMEN LIMITED (US) HISTORY: Pain. Nausea. 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 COMPARISON: 10/25/2008 FINDINGS: Pancreas: The pancreas demonstrates a normal echotexture. Liver: Unremarkable. Gallbladder: No gallbladder wall thickening. No gallstones. CBD: 6 mm Right kidney: No hydronephrosis. The adrenal glands are not seen IMPRESSION: No significant abnormality identified within the within the right upper quadrant. The adrenal glands are not identified The above report was generated using voice recognition software. It may contain grammatical, syntax or spelling errors. Electronically signed by: Robel Clark M.D. 02/11/2017 9:04 AM Dictated Date/Time: 02/11/2017 9:02 AM
== END | disposition home or self-care (01) ==
LOC: C.ULTR 08:01
PROVIDERS: ATTEND Dermatology
DX: L65.9 Nonscarring hair loss, unspecified (principal)

== ENCOUNTER → 2017-02-18 | Outpatient (CLI) | payer OTHER ==
[2017-02-18 09:49] LABS: BLOOD UREA NITROGEN 22 mg/dl (7-18); BUN/CREATININE RATIO 24.9 (10-20); CARBON DIOXIDE 30 mmol/L (21-32); CHLORIDE 104 mmol/L (98-107); CREATININE 0.88 mg/dl (0.60-1.20); GLUCOSE 94 mg/dl (70-99); POTASSIUM 3.9 mmol/L (3.5-5.1); SODIUM 138 mmol/L (136-145)
== END | disposition home or self-care (01) ==
LOC: C.LAB 08:38
PROVIDERS: ATTEND Physician Assistant
DX: L65.9 Nonscarring hair loss, unspecified (principal)

== ENCOUNTER → 2017-03-18 | Outpatient (CLI) | payer OTHER ==
[~2017-03-18] MED LIST changes: +OPTIRAY 320 IV PRN
--- NOTE | 2017-03-18 10:03 | DIAGNOSTIC IMAGING REPORT ---
ABDOMEN COMBO CLINICAL HISTORY: 67 years-old Female presenting with R89.9 Abnormal laboratory testAdrenal [id number]. TECHNIQUE: Multidetector CT of the abdomen was performed before and after the administration of intravenous contrast. IV contrast: 117 mL of Optiray 320. A dose lowering technique was used consistent with the principles of ALARA (as low as reasonably achievable). COMPARISON: 06/21/2014. CT DOSE (mGy.cm): The estimated cumulative dose is 838.91 mGycm. 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 Lung bases: Minimal dependent changes likely atelectasis. Coronary artery calcification. Normal heart size. No pericardial or pleural effusion. Liver: Normal morphology. Normal density. Few subcentimeter hypodensities noted in the liver, which are well-defined and unchanged from prior consistent with hepatic cysts or hamartomas. Patent hepatic vasculature. Biliary: No intrahepatic or extrahepatic biliary ductal dilatation. Normal gallbladder. Pancreas: Normal. Spleen: Normal. Adrenal glands: Normal. No focal nodule. Mild thickening of the left adrenal gland, nonspecific. Kidneys and ureters: Punctate nonobstructing calculus at the upper pole the left kidney. Normal parenchymal enhancement. Normal excretion from the bilateral kidneys. No hydronephrosis. Extrarenal right renal pelvis. No filling defects in the collecting systems or proximal ureters on delayed imaging. Bowel: Normal. No bowel obstruction. Peritoneal cavity: No free fluid or intraperitoneal gas. Lymph nodes: No enlarged lymph nodes in the abdomen. Vasculature: Atherosclerosis of the normal caliber abdominal aorta. IVC patent. Abdominal wall: Normal. Musculoskeletal: Degenerative changes of the spine. IMPRESSION: 1. No focal adrenal nodule. Mild nonspecific thickening of the left adrenal gland. 2. Punctate nonobstructing left renal calculus. Electronically signed by: Richard Vang M.D. 03/18/2017 10:01 AM Dictated Date/Time: 03/18/2017 9:56 AM
== END | disposition home or self-care (01) ==
LOC: C.CTS 09:15
PROVIDERS: ATTEND Physician Assistant
DX: R89.9 Unspecified abnormal finding in specimens from other organs, systems and tissues (principal)

== ENCOUNTER → 2017-03-25 | Outpatient (CLI) | payer OTHER ==
[~2017-03-25] MED LIST changes: -OPTIRAY 320 IV PRN
--- NOTE | 2017-03-25 14:48 | DIAGNOSTIC IMAGING REPORT ---
CHEST 2 VIEWS ROUTINE CLINICAL HISTORY: Cough COMPARISON STUDY: Chest radiograph April 20, 2016. FINDINGS: The lung volumes are normal. No pneumothorax or pleural effusion is present. There is no consolidation to suggest pneumonia and there is no evidence of pulmonary edema. Cardiomediastinal silhouette is normal. IMPRESSION: No acute cardiopulmonary findings. Electronically signed by: Anibal Roberts M.D. 03/25/2017 2:47 PM Dictated Date/Time: 03/25/2017 2:46 PM
== END | disposition home or self-care (01) ==
LOC: C.RADBC 14:31
PROVIDERS: ATTEND Internal Medicine
DX: R05 Cough (principal)

== ENCOUNTER → 2017-04-12 | Outpatient (CLI) | payer OTHER ==
--- NOTE | 2017-04-12 15:14 | DIAGNOSTIC IMAGING REPORT ---
R HIP UNILATERAL 2 VIEWS CLINICAL HISTORY: Right hip pain. COMPARISON: CT of the abdomen and pelvis June 21, 2014. FINDINGS: Alignment of the right hip is anatomic. No fracture or osseous lesion is present. There is no radiographic evidence for avascular necrosis. There is moderate joint space narrowing and osteophytosis. No erosions are identified. IMPRESSION: 1. No acute fracture. 2. Mild right hip osteoarthritis. Electronically signed by: Anibal Roberts M.D. 04/12/2017 3:13 PM Dictated Date/Time: 04/12/2017 3:12 PM
== END | disposition home or self-care (01) ==
LOC: C.RAD1850 15:04
PROVIDERS: ATTEND Internal Medicine Rheumatology
DX: M25.551 Pain in right hip (principal)

== ENCOUNTER → 2017-04-12 | Outpatient (CLI) | payer OTHER | END | disposition home or self-care (01) | LOC: C.LAB1850 15:18 | PROVIDERS: ATTEND Dermatology | DX: L65.9 Nonscarring hair loss, unspecified (principal) ==

== ENCOUNTER → 2017-06-29 | Outpatient (CLI) | payer OTHER ==
--- NOTE | 2017-06-29 16:41 | DIAGNOSTIC IMAGING REPORT ---
MRI THE RIGHT HIP NO CONTRAST CLINICAL HISTORY: Persistent right hip pain. COMPARISON STUDY: Conventional radiographic study dated April 12, 2017 FINDINGS: Imaging was performed the coronal axial and parasagittal planes. There is no pathologic adenopathy. There are no areas of marrow edema to indicate occult fracture. There is no evidence of avascular necrosis. There is no evidence for a pathologic joint effusion. There are mild osteoarthritic changes. There is a small subchondral acetabular cyst. There is minimal gluteus medius tendinopathy. IMPRESSION: 1. Minimal gluteus medius tendinopathy 2. Moderate osteoarthritic change 3. No evidence of occult fracture. No evidence of avascular necrosis. Electronically signed by: Logan Davidson M.D. 06/29/2017 4:40 PM Dictated Date/Time: 06/29/2017 4:34 PM
== END | disposition home or self-care (01) ==
LOC: C.MRIBC 15:45
PROVIDERS: ATTEND Orthopaedic Surgery
DX: M25.551 Pain in right hip (principal)

== ENCOUNTER → 2017-07-08 | Day surgery (SDC) | payer OTHER ==
--- NOTE | 2017-06-29 17:26 | History and Physical ---
History & Physical Date & Time of Service: Jun 29, 2017 at 17:06 Chief Complaint: Exertional angina Primary Care Physician: RV. Espinoza MD History of Present Illness Mrs Solano is a 67-year-old female with a long-standing history of aggressive early onset atherosclerotic coronary heart disease that initially been diagnosed in 2008. She had been seen by Little Colon PA-C of our practice as an acute visit on 05/20/17 describing discomfort in her wrists bilaterally as well as her left shoulder. Wrist discomfort with exertion has been her past anginal equivalent. This time however she noticed that the symptoms seemed most present when she was in her quiet times when sitting. She went on to have an exercise stress echocardiogram performed on 05/31/17 as an outpatient at [facility] during which time she exercised to an above average peak workload completing 10 minutes on standard Roni protocol. Wrist discomfort did not occur with exercise. EKG and echocardiographic responses to exercise were normal. She was subsequently seen in follow-up by the undersigned on . She was reassured that the stress test was negative for inducible ischemia but she was still very concerned about her wrist discomfort. We have discussed options of proceeding with definitive coronary angiography versus ongoing medication therapy. She got home and had since contacting me with concerns that she is still having the wrist discomfort and therefore decision was made to proceed with definitive coronary angiography for evaluation of her symptoms. Past Medical/Surgical History PAST MEDICAL / CARDIAC INTERVENTIONAL HISTORY: 1.Chronic coronary heart disease with history of CAD and multiple drug-eluting stents placed. ~She had 2 stents to the ~mid LAD and 2008 as well as 1 drug- eluting stent to the proximal left circumflex at that time. An additional drug- eluting stent was placed the proximal LAD later in 2008 for recurrent angina. ~ In December, she had recurrent unstable angina and underwent a drug-eluting stent to the mid circumflex coronary artery. Her most recent percutaneous coronary interventions were performed by Dr. Rodriguez at [facility]. 2.She has chronic myalgia complaints that improved after discontinuation of simvastatin and Crestor. ~She had been on multiple dosing regimens including only taking them seldomly. ~She is on Zetia, but her lipids are uncontrolled. ~ She responded well to Praluent during a clinical trial ,~but this has since been stopped due to high [id number]-[id number] cost. Family History Diabetes mellitus FHx: cancer FHx: gallbladder disease FHx: heart disease Hypertension Kidney disease Social History Smoking Status: Never Smoker Drug Use: none Marital Status: Housing status: lives with family Occupational Status: retired Immunizations History of Influenza Vaccine: Yes Influenza Vaccine Date: Dec 22, 2012 History of Tetanus Vaccine?: Yes Tetanus Immunization Date: Jun 12, 2008 History of Pneumococcal: Yes Pneumococcal Date: Oct 11, 2008 History of Hepatitis B Vaccine: Yes Hepatitis Immunization Date: Jan 10, 2011 Multi-Drug Resistant Organisms History of MDRO: No Allergies Coded Allergies: Metoprolol (Verified Allergy, Mild, RASH, 04/20/16) Omeprazole (Verified Allergy, Mild, PRURITIS, 04/20/16) Tramadol (Verified Allergy, Mild, RASH, 04/20/16) Beta Adrenergic Blockers (Unverified Allergy, Unknown, RASH, 04/20/16) Codeine (Verified Allergy, Unknown, NAUSEA, 04/20/16) Iron (Verified Allergy, Unknown, DIARRHEA, 04/20/16) Sulfa Drugs (Verified Allergy, Unknown, "GET HOT AND RED", 04/20/16) Fentanyl (Verified Adverse Reaction, Intermediate, NAUSEA/ EXTREME HOT FLASHES, 04/20/16) Home Medications Scheduled Aspirin (Aspirin Ec), 81 MG PO QAM Bisoprolol Fumarate (Bisoprolol Fumarate), 5 PO QAM Calcium Carbonate-Cholecalcife (Caltrate 600+D), 1 TAB PO BID Clopidogrel (Plavix), 75 MG PO QAM Ezetimibe (Zetia), 10 MG PO DAILY Nitroglycerin (Nitrostat), 0.4 MG UT PRN Physical Exam Vital Signs Vital signs obtained at [facility] dated 06/01/17: BP 104/62 | Pulse 64 | Resp 16 | Wt 138 lbs 12.8 oz (62.959kg) | BMI 25.8 kg/m | BSA 1.65 General: no acute distress and stated age Eyes: conjunctiva are pink and non-injected, sclera clear Neck: normal jugular venous pulse, no hepatojugular reflux Chest: normal shape and normal respiratory effort Lungs: clear to auscultation and percussion Cardiac Exam: - regular heart sounds, no murmurs, rubs, or gallops Abdomen: abdomen soft, non-tender, no abnormal masses and no hepatosplenomegaly Musculoskeletal: no gait disturbance, no weakness Extremities: no edema and no cyanosis Neuro: grossly normal exam Psych: appropriate affect and insight. Diagnostics Laboratory Results Ref. Range 06/28/2017 14:26 WBC Latest Ref Range: 4.00 - 10.80 K/uL 8.11 RBC Latest Ref Range: 3.85 - 5.15 M/uL 4.51 HGB Latest Ref Range: 12.0 - 15.3 g/dL 14.2 HCT Latest Ref Range: 36.0 - 45.2 % 41.9 PLATELET COUNT Latest Ref Range: 140 - 400 K/uL 304 PT/INR-PT Latest Ref Range: 11.5 - 14.6 seconds 13.4 PT/INR-INR Latest Ref Range: 0.87 - 1.17 1.05 APTT-PATIENT Latest Ref Range: 21 - 38 seconds 24 BUN Latest Ref Range: 6 - 20 mg/dL 19 CREATININE Latest Ref Range: 0.5 - 1.0 mg/dL 1.0 E GLOM FILT RATE Latest Ref Range: >60 >60.0 SODIUM Latest Ref Range: 135 - 146 mmol/L 144 POTASSIUM Latest Ref Range: 3.5 - 5.1 mmol/L 4.3 CHLORIDE Latest Ref Range: 98 - 107 mmol/L 102 CO2 Latest Ref Range: 22 - 32 mmol/L 29 GLUCOSE Latest Ref Range: 70 - 120 mg/dL 152 (H) CALCIUM Latest Ref Range: 8.4 - 10.2 mg/dL 10.0 ANION GAP Latest Ref Range: 7 - 15 mmol/L 13 EKG EKG performed 06/28/17: Normal sinus rhythm at 72 bpm Rightward axis Incomplete right bundle branch block Septal infarct (cited on or before 27-OCT-2016) Abnormal ECG When compared with ECG of 20-MAY-2017 15:54, No significant change was found Impression Assessment and Plan Impression: 1. Ongoing symptoms of exertional wrist discomfort which is been the patient's previous anginal equivalent. She is very concerned and after ongoing discussion , we have made sure decision of proceeding with invasive coronary angiography. As noted above she had 2 stents placed in the mid LAD in 2008 as well as a drug- eluting stent to the proximal left circumflex in 2008. An additional drug- eluting stent was placed in the proximal LAD later in 2008 for recurrent angina. In December 2012 she had recurrent unstable angina and underwent drug-eluting stent to the mid circumflex coronary artery. 2. She has chronic myalgia complaints and has been intolerant of statin therapy including simvastatin and rosuvastatin. She is on Zetia but her lipids are uncontrolled. She previously responded well to Praluent during a clinical trial, having tolerated the medication well from a side effect standpoint, and with excellent improvement in her lipids however the patient has discontinued the medication post clinical trial involvement due to excessive [id number]-[id number] cost. Plan: Proceed with coronary angiography. Preop procedures laboratory studies and EKG are stable as of results on 06/29/17. The patient will be reassessed on the day of her procedure by Dr. Durand and her H&P will be updated as necessary at that time
[~2017-07-08] VITALS: Ht 154.9 cm; Wt 63.6 kg
[~2017-07-08] MED LIST changes: +HEPARIN SOD (PORCINE) 1000 UNIT/ML 10 ML VIAL ONE; +LIDOCAINE HCL 1% 20 ML VIAL ONE; +MAGN400T6 PO; +MIDAZOLAM HCL 1 MG/ML 2ML VIAL ONE; +NITROGLYCERIN/D5W 100MCG/ML 20ML SYR ONE; +NiCARDipine HCL INJ 2.5 MG/ML 10 ML AMP ONE; +SPIR25TA PO; -[UNRECOGNIZED DRUG - OTHER] IM
[2017-07-08 07:30] VITALS: BP 128/71; PULSE 63; TEMP 36.5; O2SAT 96; Ht 154.9 cm; Wt 63.6 kg
--- NOTE | 2017-07-08 08:32 | History & Physical Bridge Note ---
H&P Re-Evaluation Bridge Note: I have examined the patient, reviewed the History & Physical and in the interval since the performance of the History & Physical I have noted the following changes of clinical significance: No changes noted
--- NOTE | 2017-07-08 10:07 | Post Sedation Assessment ---
Post Sedation Assessment General Date of Sedation Jul 08, 2017. Vital Signs: Vital Signs Past 12 Hours Date Time Temp Pulse Resp B/P (MAP) Pulse Ox O2 Delivery O2 Flow Rate FiO2 07/08/17 09:55 62 16 131/70 (90) 98 Room Air 07/08/17 07:30 36.5 63 16 128/71 (90) 96 Room Air Post Procedure Recovery Score Activity: (2) Moves 4 extremities * Respiration: (2) Deep breath/cough Circulation: (2) +/-20% PreAnes Value Consciousness: (2) Fully Awake Oxygen Saturation: (2) > 92% On Room Air Post Anesthesia Score: 10 Discharge Sedation Level of Care: Fast Track Phase II Post Sedation Plan On clinical assessment, the patient appears to have tolerated the sedation without complications. Patient is recovering as anticipated. Patient will continue to be monitored by nursing and may be discharged when sedation discharge criteria are met per below protocol. Upon Completions of procedure and additional 15 minutes continue every 5 minute vital signs and the P.A.R. score; then discharge to a Phase I or Fast Track to Phase II per the following guidelines: * Discharge Patient to appropriate Phase II area if PAR is 8 or greater or return to pre- procedure baseline. The post - procedure orders will be as directed. * If PAR score is less than 8 or not return to pre-procedure baseline then patient will follow Phase I monitoring till PAR is reached for Phase II. The Phase I may be done in procedure room or may call to secure a Phase I area. * If naloxone or flumazenil are used for reversal, hold in Phase I for an additional 60 -120 minutes before discharge to Phase II. Please call the Sedation Physician to re-evaluate and complete post-note for discharge to Phase II area. Do NOT discharge from procedure sedation or Phase 1 until post- sedation evaluation note is complete by procedure /sedation MD Sedation Discharge Instructions to be given to the patient at discharge to home.
--- NOTE | 2017-07-08 10:24 | Cardiac Catheterization ---
Procedure Note Procedure Date Jul 08, 2017. Pre-Procedure Diagnosis Angina, CAD AUC Score 7 Post-Procedure Diagnosis Mild CAD Procedure(s) Performed Coronary Angiography, Left Heart Cath, Aortography (brachiocephalic angiography , and aortography. 4- vessel arch. Proximal vessels are patent with mild focal brachiocephilc plaque(20%). normal aortic diameter.) Crusher Feeder Dr. Durand [place] Man(s) Glunt DISPATCHER MAINTENANCE Estimated Blood Loss 8cc Medication(s) Nicardipine, Nitroglycerin, Versed, Lidocaine 1% Summary of Findings Patent Proximal LAD stent with 30% ISR Patent mid Lcx stent with 20% Diffuse mild to moderate RCA stenosis 30% Mild focal non-obstructive brachiocephalic plaque 20% 4 vessel aortic arch Hemodynamics Rest Ao: 116/54/78 Final Ao: 130/53/83 LV: 124/2/12 Recommendations Medical therapy and/or Counseling Specimens None Radiation Exposure (mGy) 755 Contrast (mls) 140 Anesthesia Moderate sedation. Start 0840. End 0955. Sedation monitor Darwin Robert RN. 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 20% ISR) OM1 (% Stenosis): Ostial (30%, small vessel) RCA (% Stenosis): Proximal (mild diffuse disease, 30%, with mild calcification. ) R PDA (% Stenosis): Normal R PL1 (% Stenosis): Normal R PL2 (% Stenosis): Normal AM (% Stenosis): Normal Aortography Aortic Regurgitation: None, Other (Normal aortic size with 4-vessel arch. Mild left subclavian calcification without significant stenosis. Focal, mild, (20%) brachiocephalic plaque. ) Diagnostic Status: Elective Closure Device Percutaneous Entry Location: Femoral (Radial site abandoned due to 4-vessel arch. Brachiocephalic artery with left sided origin. Unable to manuver catheter (3 catheters)to aortic root from right radial access. ) Recommendations: Medical therapy and/or Counseling Intraprocedure Events Significant Dissection: No Perforation: No
--- NOTE | 2017-07-08 10:27 | Discharge Instructions ---
Discharge Instructions Procedure Procedure Date: Jul 08, 2017. Reason for Visit: Exertional Angina *Dr Durand To Do*. Discharge Discharge Date: Jul 08, 2017. Discharge Diagnosis: status post cardiac catheterization patent cardiac stents Last Recorded Wt (Kilograms): 63.56 Anesthesia Post Anesthesia Instructions: If you have had General Anesthesia or IV Sedation: * Do not drive today. * Resume driving when surgeon permits. * Do not make important decisions or sign legal documents today. * Call surgeon for: 1. Temperature elevations greater than 101 degrees F. 2. Uncontrollable pain. 3. Excessive bleeding. 4. Persistent nausea and vomiting. 5. Medication intolerance (nausea, vomiting or rash). * For nausea and vomiting use only clear liquids such as: tea, soda, bouillon until nausea subsides, then gradually increase diet as tolerated. * If you have any concerns or questions, call your surgeon's office. If physician is unavailable and it is an emergency, call 911 or go to the nearest emergency room. Instructions Activity Recommendations: limitations as noted below Return to School/Work: with the following limitations Recommended Home Diet: low cholesterol Allergies: Coded Allergies: Metoprolol (Verified Allergy, Mild, RASH, 04/20/16) Omeprazole (Verified Allergy, Mild, PRURITIS, 04/20/16) Tramadol (Verified Allergy, Mild, RASH, 04/20/16) Beta Adrenergic Blockers (Unverified Allergy, Unknown, RASH, 04/20/16) Codeine (Verified Allergy, Unknown, NAUSEA, 04/20/16) Iron (Verified Allergy, Unknown, DIARRHEA, 04/20/16) Sulfa Drugs (Verified Allergy, Unknown, "GET HOT AND RED", 04/20/16) Fentanyl (Verified Adverse Reaction, Intermediate, NAUSEA/ EXTREME HOT FLASHES, 04/20/16) Provider Instructions ACTIVITY RECOMMENDATIONS: It is common to feel weak and fatigue for a few days. * Do not drive or operate any motorized equipment for the next three days. * Limit stair usage (2 or 3 trips a day only) for the next three days. * Do not lift anything heavier than 10 pounds for the next three days. * Do not engage in vigorous exercise or any sports for the next five days. * You may shower the day after your procedure, but do not immerse the area for three days. Cleanse the site gently with soap and water. SPECIAL CARE INSTRUCTIONS: * You may replace the pressure dressing or band-aid the morning after the procedure. * After your procedure, it is normal to have a small bruise or small lump at the site. Examine your site daily for any change in the bruise or lump, redness, swelling, drainage or numbness. Notify your doctor if any change. BLEEDING: * If there is a small amount of bleeding at the site, lie down and apply firm pressure with a clean cloth for ten minutes. When the bleeding stops, lie quietly keeping the procedure limb straight for six hours. Notify your doctor as soon as possible. * If the bleeding does not stop after ten minutes or if there is a large amount of bleeding or spurting, call 911 immediately. Continue to lie down and hold firm pressure until help arrives. SKIN IRRITATION: * You may experience some redness and/or swelling in the area where radiation was administered. If any skin irritation occurs, please contact your family physician. FOLLOW UP VISIT: Keep any scheduled doctor appointments. Follow Up Follow-up with: Dr. Brooks as scheduled. Brittany Argueta Recommendations: Call your doctor if: * Temperature above 101 degrees * Pain not relieved by pain medicine ordered * There is increased drainage or redness from any incision * You have any unanswered questions or concerns. Your Doctors Instructions noted above were prepared by provider Stevie Durand. Patient Signature Section: Patient Instructions Signature Page Khushboo Solano Patient (or Guardian) Signature/Date: I have read and understand the instructions given to me by my caregivers. Caregiver/RN/Doctor Signature/Date: The above-named patient and/or guardian has received patient instructions on this date. + Original Patient Signature Page (only) stays with chart. Please make copy for patient.
[2017-07-08 14:00] VITALS: BP 122/78; PULSE 67; O2SAT 99
== END | disposition home or self-care (01) ==
LOC: C.CATH 07:13
PROVIDERS: ATTEND Internal Medicine Cardiovascular Disease
DX: I25.118 Atherosclerotic heart disease of native coronary artery with other forms of angina pectoris (principal); Z79.82 Long term (current) use of aspirin; Z79.02 Long term (current) use of antithrombotics/antiplatelets; Z79.899 Other long term (current) drug therapy; Z88.2 Allergy status to sulfonamides; Z88.5 Allergy status to narcotic agent; Z88.8 Allergy status to other drugs, medicaments and biological substances; Z83.3 Family history of diabetes mellitus; Z82.49 Family history of ischemic heart disease and other diseases of the circulatory system; Z84.1 Family history of disorders of kidney and ureter; Z80.9 Family history of malignant neoplasm, unspecified

== ENCOUNTER → 2017-09-16 | Outpatient (CLI) | payer OTHER ==
[2017-07-08 07:30] VITALS: BMI 26.0
[2017-09-13 09:12] VITALS: BMI 26.0
[~2017-09-16] MED LIST changes: -HEPARIN SOD (PORCINE) 1000 UNIT/ML 10 ML VIAL ONE; +KETO10TA PO; -LIDOCAINE HCL 1% 20 ML VIAL ONE; -MIDAZOLAM HCL 1 MG/ML 2ML VIAL ONE; -NITROGLYCERIN/D5W 100MCG/ML 20ML SYR ONE; -NiCARDipine HCL INJ 2.5 MG/ML 10 ML AMP ONE; +OXYC-57 PO
--- NOTE | 2017-09-16 11:13 | PAT Medication Instructions ---
Service Date Sep 16, 2017. Current Home Medication List Aspirin (Aspirin Ec), 81 MG PO QAM Bisoprolol Fumarate (Bisoprolol Fumarate), 5 PO QAM Calcium Carbonate-Cholecalcife (Caltrate 600+D), 1 TAB PO BID Clopidogrel (Plavix), 75 MG PO QAM Ezetimibe (Zetia), 10 MG PO QAM Magnesium Oxide (Mag-Ox), 250 MG PO QAM Nitroglycerin (Nitrostat), 0.4 MG UT PRN Spironolactone (Aldactone), 12.5 MG PO QAM Medication Instructions For Your Scheduled Surgery -To be held for 5 days per surgeon and cardio: Clopidogrel (Plavix), 75 MG PO QAM MUST BE HELD FOR 7 DAYS FOR SPINAL ANESTHESIA (preferred method) --please check with your verification engineer -Continue as directed for chest pain: Nitroglycerin (Nitrostat), 0.4 MG UT PRN - Hold the following medications the morning of surgery: Calcium Carbonate-Cholecalcife (Caltrate 600+D), 1 TAB PO BID Magnesium Oxide (Mag-Ox), 250 MG PO QAM Spironolactone (Aldactone), 12.5 MG PO QAM - Take the following medications the morning of surgery with a sip of water: Aspirin (Aspirin Ec), 81 MG PO QAM Bisoprolol Fumarate (Bisoprolol Fumarate), 5 PO QAM Ezetimibe (Zetia), 10 MG PO QAM - Take the following medications as scheduled the night before surgery: Calcium Carbonate-Cholecalcife (Caltrate 600+D), 1 TAB PO BID If you have any questions please call us at [phone] or [phone] or [phone]
[2017-09-16 12:00] LABS: BASO % 0.3 %; BASO ABS # 0.02 K/uL (0-0.2); EOS % 1.4 %; HEMOGLOBIN 13.9 g/dL (12.0-16.0); IG# 0.01 K/uL (0.00-0.02); LYMPH % 33.5 %; LYMPH ABS # 2.36 K/uL (1.2-3.4); MEAN CELL VOLUME 91.1 fL (80-100); MEAN CORPUSCULAR HEMOGLOBIN 30.9 pg (25-34); MEAN CORPUSCULAR HGB CONC 33.9 g/dl (32-36); MEAN PLATELET VOLUME 9.9 fL (7.4-10.4); MONO % 6.5 %; MONO ABS # 0.46 K/uL (0.11-0.59); NEUT % 58.2 %; NEUT ABS # 4.09 K/uL (1.4-6.5); PLATELET COUNT 242 K/uL (130-400); RED CELL DISTRIBUTION WIDTH CV 11.9 % (11.5-14.5); RED CELL DISTRIBUTION WIDTH SD 39.6 fL (36.4-46.3); WHITE BLOOD COUNT 7.04 K/uL (4.8-10.8)
[2017-09-16 12:11] LABS: INR 1.1 (0.9-1.1); PTT PATIENT 23.6 SECONDS (21.0-31.0)
[2017-09-16 13:05] LABS: CALCIUM 8.9 mg/dl (8.5-10.1); CREATININE 0.83 mg/dl (0.60-1.20)
--- NOTE | 2017-10-14 09:16 | CODING QUERY NO DIAGNOSIS ---
TREATMENT RENDERED WITHOUT A DIAGNOSIS To promote full compliance with coding requirements relating to patient care, physician participation is requested in all cases of death surveys coder uncertainty. Please assist us with providing a diagnosis/symptom for the test(s) below: A diagnosis/symptom was not documented on your Order. A valid diagnosis/symptom is required to bill all insurances. Please remember that we are unable to code a diagnosis of rule out, probable, possible, questionable, or suspected. Tests that require a diagnosis: DOS: 09/16/17 * CBC W/ AUTO DIFF DIAGNOSIS: * PARTIAL RENAL PROFILE DIAGNOSIS: * ECG ROUTINE DIAGNOSIS: Provider Signature: Date: Thank you Carmita Morrissey [employer] Once completed, please kindly fax back to [phone] For questions please call [phone]
--- NOTE | 2017-10-14 09:18 | CODING QUERY NO DIAGNOSIS ---
TREATMENT RENDERED WITHOUT A DIAGNOSIS To promote full compliance with coding requirements relating to patient care, physician participation is requested in all cases of certified professional coder uncertainty. Please assist us with providing a diagnosis/symptom for the test(s) below: A diagnosis/symptom was not documented on your Order. A valid diagnosis/symptom is required to bill all insurances. Please remember that we are unable to code a diagnosis of rule out, probable, possible, questionable, or suspected. Tests that require a diagnosis: DOS: 09/16/17 * PTT DIAGNOSIS: * PT/INR DIAGNOSIS: Provider Signature: Date: Thank you Carmita Morrissey [email or web address] Once completed, please kindly fax back to [phone] For questions please call [phone]
== END | disposition home or self-care (01) ==
LOC: C.LAB 10:17 → EDSTATUS 10-14 07:00
PROVIDERS: ATTEND Orthopaedic Surgery
DX: Z01.818 Encounter for other preprocedural examination (principal); M70.61 Trochanteric bursitis, right hip; M25.551 Pain in right hip

== ENCOUNTER → 2017-10-10 | Outpatient (CLI) | payer OTHER ==
--- NOTE | 2017-10-11 15:24 | MAMMOGRAPHY REPORT ---
BILATERAL DIGITAL SCREENING MAMMOGRAM TOMOSYNTHESIS WITH CAD: 10/10/2017 CLINICAL HISTORY: Routine screening. Patient has no complaints. TECHNIQUE: The study was acquired using full field digital technology and interpreted from soft copy. Breast tomosynthesis in addition to standard 2D mammography was performed. Current study was also ev aluated with a Computer Aided Detection (CAD) system. COMPARISON: Comparison is made to exams dated: 10/08/2016 mammogram, 10/07/2015 mammogram, 10/03/2014 m ammogram, 10/02/2013 mammogram, 09/13/2012 mammogram, and 09/13/2011 mammogram - [facility] ter. BREAST COMPOSITION: The tissue of both breasts is heterogeneously dense, which may obscure small mass es. FINDINGS: There are scattered benign coarse calcifications in the breasts. Minimal vascular calcific ation as well. No suspicious mass, architectural distortion or cluster of suspicious microcalcificati ons is seen. IMPRESSION: ACR BI-RADS CATEGORY 1: NEGATIVE There is no mammographic evidence of malignancy. A 1 year screening mammogram is recommended.( 019) The patient will receive written notification of the results. Some breast cancers are not detected with mammography. A negative mammographic report should not ziyad y biopsy if a clinically suggestive mass is present. Gayatri Vaz M.D. ay/:10/10/2017 21:02:13 Senior Dentist: Brittany Fine, [facility] letter sent: Normal 1/2 BI-RADS Code: ACR BI-RADS Category 1: Negative
== END | disposition home or self-care (01) ==
LOC: C.MAMM 13:24
PROVIDERS: ATTEND Internal Medicine
DX: Z12.31 Encounter for screening mammogram for malignant neoplasm of breast (principal)

== ENCOUNTER 2017-10-14 08:28 | Day surgery (SDC) | payer OTHER ==
[2017-09-13 09:12] VITALS: BMI 26.0
[2017-09-16 10:27] VITALS: BMI 26.0
--- NOTE | 2017-10-13 14:43 | HISTORY & PHYSICAL EXAMINATION ---
DATE OF ADMISSION: 10/14/2017 CHIEF COMPLAINT: Chronic greater trochanteric bursitis of the right hip. HISTORY OF PRESENT ILLNESS: Khushboo is a pleasant 67-year-old female who has been dealing with a several-year history of chronic trochanteric bursitis of her right hip. She has had multiple injections. The injections helped briefly. They do not last. She has failed physical therapy. It does aggravate her whenever she walks long distances or goes up and down stairs. She was hoping to have more aggressive treatment, so we elected to proceed with a release of the IT band. PAST MEDICAL HISTORY: Significant for coronary artery disease with 5 stent placements without history of KS and hyperlipidemia. PAST SURGICAL HISTORY: Significant for 5 heart stents placed over a brief time from [id number] and then Nirschl procedure of her right elbow. ALLERGIES: CODEINE, SULFA, FENTANYL, PRILOSEC, TOPROL, ULTRAM, STATINS, MORPHINE, IRON, CIPRO AND AUGMENTIN. MEDICATIONS: Include Zetia, aspirin, Plavix, bisoprolol, calcium, magnesium and spironolactone. FAMILY HISTORY: Significant for thyroid cancer in her dad, diabetes, heart disease in both parents. SOCIAL HISTORY: She is , has 3 kids. She rarely drinks. She remains active. REVIEW OF SYSTEMS: She complains of the right lateral sided hip pain. PHYSICAL EXAMINATION: GENERAL: She is awake, alert and oriented x3. She is in no apparent distress. She is very pleasant. HEENT: Pupils are equal, round, reactive to light. Extraocular movements intact. Oral mucosa is pink and moist. HEART: Regular rate per radial pulse. LUNGS: Danisha symmetrically bilaterally with no audible breath sounds. ABDOMEN: Soft, nontender, nondistended. MUSCULOSKELETAL: On physical examination of the right hip, she has a lot of tenderness to palpation directly over the greater trochanteric bursa. She has 5/5 muscle strength with hip abduction. She walks independently without assistance. IMPRESSION: Greater trochanteric bursitis of the right hip. PLAN: We will proceed with a greater trochanteric bursectomy and IT band lengthening. Postoperatively, she will be weightbearing as tolerated and discharged to home on oral pain medications.
[~2017-10-14] VITALS: Ht 157.5 cm; Wt 65.3 kg
[~2017-10-14 08:28] MED LIST changes: +CEFAZOLIN 2000MG IV PUSH 15 ML IV SCH; -KETO10TA PO; +LACTATED RINGER'S 1000ML 1,000 ML IV SCH; -OXYC-57 PO
[2017-10-14 09:06] VITALS: BP 102/65; PULSE 66; TEMP 36.8; O2SAT 96; Ht 157.5 cm; Wt 65.3 kg
[2017-10-14] MEDS ORDERED: BUPIVACAINE 0.5 % 5 MG/1 ML PF 10ML VIAL ONE (09:28)
[2017-10-14] MEDS ORDERED: EpHEDrine SULFATE INJ 50 MG/ML AMP IV PRN (09:45)
[2017-10-14] MEDS ORDERED: ONDANSETRON INJ 2 MG/ML 2 ML VIAL IV PRN ×2 (09:45→12:00)
[2017-10-14] MEDS ORDERED: ATROPINE SULFATE 0.1 MG/ML 5ML SYR IV PRN (09:45)
[2017-10-14] MEDS ORDERED: FENTANYL CITRATE INJ 50 MCG/1 ML 2 ML VIAL IV PRN (09:45)
[2017-10-14] MEDS ORDERED: LIDOCAINE HCL 2% 2 ML VIAL (20MG/ML) ONE ×2 (10:15→10:40)
[2017-10-14] MEDS ORDERED: ROCURONIUM BROMIDE 10 MG/ML 5 ML VIAL ONE (10:15)
[2017-10-14] MEDS ORDERED: PROPOFOL IV EMULSION 10 MG/ML 20 ML VIAL ONE ×2 (10:15→10:40)
[2017-10-14] MEDS ORDERED: KETAMINE HCL INJ 50 MG/ML 10 ML VIAL ONE ×2 (10:16→10:45)
[2017-10-14] MEDS ORDERED: MIDAZOLAM HCL 1 MG/ML 2ML VIAL ONE ×2 (10:16→10:40)
[2017-10-14] MEDS ORDERED: DexMEDEtomidine HCL IV 100 MCG/ML VIAL IV ONE (10:23)
[2017-10-14] MEDS ORDERED: ACETAMINOPHEN 1000 MG/100 ML IV IV ONE (10:24)
[2017-10-14] MEDS ORDERED: BACITRACIN 50000 UNIT VIAL ONE (10:27)
[2017-10-14] MEDS ORDERED: DEXAMETHASONE SOD INJ 4 MG/ML VIAL ONE (10:40)
[2017-10-14] MEDS ORDERED: ONDANSETRON INJ 2 MG/ML 2 ML VIAL ONE ×2 (10:40→11:34)
[2017-10-14] MEDS ORDERED: FENTANYL CITRATE INJ 50 MCG/1 ML 2 ML VIAL ONE (10:41)
[2017-10-14] MEDS ORDERED: SODIUM CHLORIDE 0.9% INJ 10 ML VIAL ONE ×2 (10:45→11:34)
[2017-10-14] MEDS ORDERED: BUPIVACAINE/EPINEPHRINE 0.5% MPF 1:200,000 30 ML VIAL ONE (11:09)
[2017-10-14] MEDS ORDERED: EpHEDrine SULFATE INJ 50 MG/ML AMP ONE (11:34)
--- NOTE | 2017-10-14 11:41 | [facility] Post Operative Brief Note ---
Immediate Operative Summary Operative Date Oct 14, 2017. Pre-Operative Diagnosis Chronic greater trochanteric bursitis of the right hip. Post-Operative Diagnosis Same Procedure(s) Performed Right hip bursectomy Surgeon Dr Rueda Rn Private Duty Surgeon(s) Tashi flanagan Estimated Blood Loss 10ml Findings Consistent with Post-Op Diagnosis Specimens None Anesthesia Type General
[2017-10-14] MEDS ORDERED: KETO10TA PO ×2 (11:51)
[2017-10-14] MEDS ORDERED: OXYC-57 PO ×2 (11:51)
[2017-10-14] MEDS ORDERED: SODIUM CHLORIDE 0.9% 1000ML 1,000 ML IV SCH (11:52)
--- NOTE | 2017-10-14 11:52 | Discharge Instructions ---
Discharge Instructions Date of Service Oct 14, 2017. Admission Reason for Admission: Discharge Discharge Diagnosis / Problem: SAME ABOVE Discharge Goals Goal(s): Decrease discomfort, Improve function Activity Recommendations Activity Limitations: as noted below Lifting Limitations: gradually increase as tolerated Exercise/Sports Limitations: gradually increase as tolerated Shower/Bathe: tomorrow . Instructions / Follow-Up Instructions / Follow-Up MEDICATIONS: * Resume previous medications unless instructed otherwise by your surgeon. * Always take pain medication on a full stomach or with food to avoid upset stomach. * Do not drink alcohol or drive while taking narcotics. * Ibuprofen or Tylenol may be taken if narcotic not needed. SPECIAL CARE INSTRUCTIONS: __ None _X_ Keep extremity elevated and iced x 48 hours; apply ice 20-30 minutes 8-10 times/day. May remove at night. _X_ Crutches _X_ May discard when able __ Brace/Post-op shoe __ 24 hrs/day __ Remove at night _X_ Dressing __ Maintain until seen in office, may shower with plastic over site _X_ Remove dressings in 24-48 hours and then may shower _X_ Cover incisions with band-aids after showering __ Do not remove steri-strips Call physician if chills or temperature rises above 102 degrees or pain unrelieved by prescribed pain medications. Office [phone] Current Hospital Diet Patient's current hospital diet: Discharge Diet Recommended Diet: Regular Diet Fluid Restriction: None Procedures Procedures Performed: Right hip bursectomy Pending Studies Studies pending at discharge: no Medical Emergencies . Who to Call and When: Medical Emergencies: If at any time you feel your situation is an emergency, please call 911 immediately. . Non-Emergent Contact Non-Emergency issues call your: Surgeon Call Non-Emergent contact if: wound has increased drainage, wound has increased redness . "Provider Documentation" section prepared by Brett Franklin. .
[2017-10-14] MEDS ORDERED: OXYCODONE/ACETAMINOPHEN 5-325 TAB PO PRN (12:00)
[2017-10-14] MEDS ORDERED: KETOROLAC TROMETHAMINE 15 MG/ML VIAL IV. PRN (12:00)
--- NOTE | 2017-10-14 12:06 | OPERATIVE REPORT ---
DATE OF OPERATION: 10/14/2017 PREOPERATIVE DIAGNOSIS: Chronic greater trochanteric bursitis of the right hip. POSTOPERATIVE DIAGNOSIS: Chronic greater trochanteric bursitis of the right hip. PROCEDURE: Right hip bursectomy with IT band release. SURGEON: Dr. John Rueda. [employer]FER: Brett Franklin PA-C, whose assistance was necessary for retraction and closure. ANESTHESIA: General. COMPLICATIONS: None. CONDITION: Stable to PACU. INDICATIONS: Khushboo is a pleasant 67-year-old female who has been dealing with a several-year history of chronic right hip bursitis. She has failed years of injections. The injections are no longer helping the hip pains affecting her quality of life, so she elected to undergo bursectomy of the right hip. OPERATION AND FINDINGS: On 10/14/2017, she arrived at [facility] for the above procedure. She was seen in the preoperative holding. The operative extremity was identified and signed. She was given a preoperative antibiotic, taken back to the operating room, laid on table in supine position and put under general anesthesia. She was then put in the lateral decubitus position. The right hip was prepped and draped in sterile fashion. Time-out was done. The patient's operative extremity was properly identified. A lateral incision was made directly over the greater trochanteric bursa. Dissection was taken down to the IT band. About 12 cm of the IT band was released in line with the trochanter. A small incision was made transversely on one side at the proximal aspect of the IT band release and 1 small incision was made on the posterior side transversely at the distal aspect of the IT band release. This allowed the IT band opened up in the shape of a football. The IT band was extremely tight before this release. The bursa was then removed with scissors. Hemostasis was obtained. The hip was brought through a full range of motion and felt to be stable. The abductors were inspected and there were no signs of tears. The wound was then irrigated and closed with 2-0 Vicryl and gil. She was placed in a soft dressing, extubated, transferred to a [facility] and taken to the postanesthesia care unit in stable condition. She tolerated the procedure well. I attest to the content of the Intraoperative Record and any orders documented therein. Any exception s are noted below.
[2017-10-14 12:40] VITALS: BP 115/64; PULSE 58; TEMP 36.2; O2SAT 98
[2017-10-14 13:10] VITALS: BP 115/62; PULSE 57; TEMP 36.3; O2SAT 96
[2017-10-14 13:40] VITALS: BP 110/62; PULSE 60; TEMP 36.3; O2SAT 96
--- NOTE | 2017-10-14 14:06 | Anesthesiology Progress Note ---
Anesthesia Post Op Note Date & Time Oct 14, 2017 at 14:06 Vital Signs Pain Intensity: 2 Vital Signs Past 12 Hours Date Time Temp Pulse Resp B/P (MAP) Pulse Ox O2 Delivery O2 Flow Rate FiO2 10/14/17 13:10 36.3 57 18 115/62 96 Room Air 10/14/17 12:40 36.2 58 18 115/64 98 Room Air 10/14/17 12:30 36.1 59 16 119/67 97 Room Air 10/14/17 12:20 62 16 122/67 100 Room Air 10/14/17 12:10 65 16 116/68 100 Oxymask 10 10/14/17 12:00 73 16 116/65 100 Oxymask 10 10/14/17 11:52 36.2 63 16 90/51 100 Oxymask 10 10/14/17 09:06 36.8 66 18 102/65 (77) 96 Room Air Notes Mental Status: alert / awake / arousable, participated in evaluation Pt Amnestic to Procedure: Yes Nausea / Vomiting: adequately controlled Pain: adequately controlled Airway Patency, RR, SpO2: stable & adequate BP & HR: stable & adequate Hydration State: stable & adequate Anesthetic Complications: no major complications apparent
[2017-10-14 14:40] VITALS: BP 133/68; PULSE 63; TEMP 36.4; O2SAT 96
== END 2017-10-14 15:34 | disposition home or self-care (01) ==
LOC: C.ACU 08:28
PROVIDERS: ATTEND Orthopaedic Surgery
DX: M70.61 Trochanteric bursitis, right hip (principal); I25.10 Atherosclerotic heart disease of native coronary artery without angina pectoris; I25.2 Old myocardial infarction; E78.5 Hyperlipidemia, unspecified; M19.90 Unspecified osteoarthritis, unspecified site; Z95.818 Presence of other cardiac implants and grafts; Z88.5 Allergy status to narcotic agent; Z88.2 Allergy status to sulfonamides; Z88.1 Allergy status to other antibiotic agents; Z88.8 Allergy status to other drugs, medicaments and biological substances; Z79.82 Long term (current) use of aspirin; Z79.02 Long term (current) use of antithrombotics/antiplatelets